=== PATIENT | female | born 1975 | race Caucasian/White ===

== ENCOUNTER → 2018-05-13 | Outpatient (CLI) | payer OTHER | LOC: BRMIMAGING 14:23 | PROVIDERS: ATTEND Physician Assistant Medical | DX: Z12.31 Encounter for screening mammogram for malignant neoplasm of breast (principal) ==

== ENCOUNTER → 2018-05-20 | Outpatient (CLI) | payer OTHER | LOC: BRMIMAGING 09:10 | PROVIDERS: ATTEND Physician Assistant Medical | DX: N63.22 Unspecified lump in the left breast, upper inner quadrant (principal); R59.0 Localized enlarged lymph nodes | CPT/HCPCS: 76641-PO ==

== ENCOUNTER → 2018-11-13 | Outpatient (CLI) | payer OTHER | LOC: BRMIMAGING 08:35 | PROVIDERS: ATTEND Physician Assistant Medical | DX: N63.21 Unspecified lump in the left breast, upper outer quadrant (principal); Z80.3 Family history of malignant neoplasm of breast | CPT/HCPCS: 76641-PO ==

== ENCOUNTER → 2018-11-14 | Outpatient (CLI) | payer OTHER | LOC: EMCIMAGING 11:30 | PROVIDERS: ATTEND Physician Assistant Medical | DX: R92.8 Other abnormal and inconclusive findings on diagnostic imaging of breast (principal); Z80.3 Family history of malignant neoplasm of breast | CPT/HCPCS: 77066-PN ==